=== PATIENT | male | born 2000 | race Caucasian/White ===

== ENCOUNTER 2019-12-23 16:31 | Emergency (ER) | payer OTHER ==
[~2019-12-23] VITALS: Ht 175.3 cm; Wt 103.8 kg
[2019-12-23] MEDS ORDERED: dayquil (16:37)
[2019-12-23 17:28] LABS: INFLUENZA A AMPLIFICATION NEGATIVE (NEGATIVE); INFLUENZA B AMPLIFICATION POSITIVE (NEGATIVE)
[2019-12-23 17:46] VITALS: BP 129/68
== END 2019-12-23 17:48 | disposition home or self-care (01) ==
LOC: M ED 16:31
DX: J10.89 Influenza due to other identified influenza virus with other manifestations (principal); F17.200 Nicotine dependence, unspecified, uncomplicated; Z88.0 Allergy status to penicillin

== ENCOUNTER → 2022-03-16 | Outpatient (REF) ==
[~2022-03-16] MED LIST: dayquil
== END ==
LOC: M PLAIMG 09:55
PROVIDERS: ATTEND Internal Medicine
DX: R06.02 Shortness of breath (principal)